=== PATIENT | male | born 1990 | race African-American/Black ===

== ENCOUNTER 2020-09-14 00:58 | Inpatient (IN) | payer OTHER, MEDICAID ==
[~2020-09-14] VITALS: Ht 177.8 cm; Wt 71.7 kg
--- NOTE | 2020-09-14 01:08 | NUR ---
patient came to er bed 3 c/o medial abdominal pain since 24X hr ago .Patient states that he has been having diarrhea and vomiting for the same time as well. patient states he ate at a restaurant and had chicken. Alert and Oriented x4. Denies shortness of breath. breathing evenly and unlabored on room air. connected to the monitor.
[2020-09-14] MEDS ORDERED: IV NS 0.9% 1,000 ML BAG IV ONE (01:30)
[2020-09-14] MEDS ORDERED: ONDANSETRON HCL/PF 4 MG/2 ML VIAL IVP ONE (01:30)
[2020-09-14] MEDS ORDERED: MORPHINE SULFATE INJ 2 MG/ML DISP.SYRIN IV ONE (01:30)
[2020-09-14] MEDS ORDERED: MORPHINE SULFATE INJ 4 MG/ML DISP.SYRIN ONE (01:39)
[2020-09-14] MEDS ORDERED: ONDANSETRON HCL/PF 4 MG/2 ML VIAL ONE (01:39)
[2020-09-14 01:49] LABS: BASOPHILS % (AUTO) 0.2 % (0.0-2.0); EOSINOPHILS % (AUTO) 0.3 % (0.0-6.0); HEMATOCRIT 39 % (39-51); HEMOGLOBIN 13.3 g/dL (13.5-17.5); LYMPHOCYTES # (AUTO) 1.1 /CMM (0.8-4.8); LYMPHOCYTES % (AUTO) 11.1 % (20.0-44.0); MEAN CORPUSCULAR HGB CONC 34 g/dl (31.0-36.0); MEAN CORPUSCULAR VOLUME 93 fL (80-96); MONOCYTES # (AUTO) 0.6 /CMM (0.1-1.30); NEUTROPHILS # (AUTO) 8.5 /CMM (1.8-8.9); NEUTROPHILS % (AUTO) 82.4 % (43.0-81.0); PLATELET COUNT (AUTO) 212 /CMM (150-450); RED BLOOD CELL COUNT(AUTO) 4.17 MIL/uL (4.5-6.0); WHITE BLOOD COUNT (AUTO) 10.3 K/uL (4.3-11.0)
[2020-09-14 01:52] LABS: BILIRUBIN,URINE SMALL (NEGATIVE); COLOR,URINE DARK YELLOW (YELLOW); LEUKOCYTE ESTERASE ,URINE NEGATIVE (NEGATIVE); NITRITE, URINE NEGATIVE (NEGATIVE); PROTEIN,URINE 30 mg/dl (NEGATIVE); UGLUCOSE NEGATIVE (NEGATIVE); UROBILINOGEN,URINE 0.2 EU/dL (0.2)
[2020-09-14 02:02] LABS: BACTERIA,URINE Few /HPF (None Seen); RBC,URINE TOO NUMEROUS TO COUN /HPF (0-2); SQUAMOUS EPITHELIAL CELL,UR Rare /HPF (None Seen); WBC,URINE 0-2 /HPF (0-3)
[2020-09-14 02:02] LABS: ALBUMIN 4.1 g/dL (3.4-5.0); BILIRUBIN,DIRECT 0.2 mg/dL (0.0-0.2); BILIRUBIN,TOTAL 0.7 mg/dL (0.2-1.0); CALCIUM, SERUM 8.8 mg/dL (8.5-10.1); CREATININE 1.3 mg/dL (0.6-1.3); POTASSIUM 3.7 mmol/L (3.5-5.1); TOTAL PROTEIN, SERUM 7.8 g/dL (6.4-8.2)
[2020-09-14] MEDS ORDERED: ONDA4TAB11 PO (02:15)
[2020-09-14] MEDS ORDERED: IBUP-1957 PO (02:15)
--- NOTE | 2020-09-14 02:32 | NUR ---
DR. TALBOT SPEAKING WITH RADIOLOGIST
--- NOTE | 2020-09-14 03:01 | NUR ---
COVID SWAB COLLECTED AND SENT TO LAB
--- NOTE | 2020-09-14 04:02 | NUR ---
REPORT GIVEN TO JOE DUARTE FOR IK[facility].
[2020-09-14 04:35] VITALS: BP 110/68
--- NOTE | 2020-09-14 04:35 | NUR ---
RN ADMITTING NOTE PATIENT BROUGHT FROM THE ER VIA WHEELCHAIR, PATIENT IS AMBULATORY. ADMITTED TO MS ROOM 104-1. A/O X 4, ABLE TO MAKE NEEDS KNOWN. DOES NOT COMPLAIN OF PAIN OR NAUSEA AT THIS TIME. TOLERATES ROOM AIR WITH 97% O2 SATURATION. BREATHING EVEN AND UNLABORED. NOT IN ANY APPARENT DISTRESS. RAC 18 G IV ACCESS PATENT AND INTACT. SKIN IS INTACT. WENT OVER PATIENT'S BELONGINGS LIST, ORIENTED PATIENT TO ROOM, UNIT, PRIMARY NURSE, CHARGE NURSE, AND AGATE SETTER. VITAL SIGNS UPON ARRIVAL: BP 110/68, HR 62, RR 18, TEMP 98.8. AWAITING ADMISSION ORDERS. WILL MONITOR PATIENT CLOSELY.
--- NOTE | 2020-09-14 04:45 | NUR ---
[id number] THACKER FOR ADMISSION ORDERS.
[2020-09-14] MEDS ORDERED: PIPERACILLIN /TAZOBACTAM 3.375 G VIAL IV ONE (05:26)
[2020-09-14] MEDS ORDERED: MORPHINE SULFATE INJ 2 MG/ML DISP.SYRIN IV PRN (05:30)
[2020-09-14] MEDS ORDERED: ACETAMINOPHEN 325 MG TABLET PO PRN (05:30)
[2020-09-14] MEDS ORDERED: MAGNESIUM HYDROXIDE 30 ML UDC PO PRN (05:30)
[2020-09-14] MEDS ORDERED: ZOLPIDEM TARTRATE 5 MG TABLET PO PRN (05:30)
[2020-09-14] MEDS ORDERED: HYDROCODONE/APAP 5/325MG TABLET PO PRN (05:30)
[2020-09-14] MEDS ORDERED: ONDANSETRON HCL/PF 4 MG/2 ML VIAL IVP PRN (05:30)
[2020-09-14] MEDS ORDERED: Z GUARD REMEDY 2 OZ OINT TP PRN (05:30)
[2020-09-14] MEDS ORDERED: MAG HYDROX/AL HYDROX/SIMETH 30 ML UDC PO PRN (05:30)
[2020-09-14] MEDS ORDERED: PIPERACILLIN /TAZOBACTAM 3.375 G in IV D5W 50 ML IV SCH (06:00)
[2020-09-14] MEDS ORDERED: ZOSYN IVPB 3.375 G in IV D5W 50ml IV ONE (06:00)
--- NOTE | 2020-09-14 06:54 | NUR ---
RN CLOSING NOTE PATIENT IN BED ASLEEP, EASILY AWAKENED. ZOSYN STILL ONGOING. PATIENT NOT IN ANY APPARENT DISTRESS. BREATHING EVEN AND UNLABORED. SAFETY MEASURES MAINTAINED. ALL ORDERS CARRIED OUT, ALL NEEDS MET AND ATTENDED. WILL ENDORSE TO DAY SHIFT NURSE FOR [facility].
--- NOTE | 2020-09-14 07:30 | NUR ---
RN NOTE PT A/Ox4 IN BED SEMIFOWLER'S ON RA SPO2 97%, NO S/S OF RESP DISTRESS OR SOB. PT DENIES PAIN AT THIS TIME. PT AMBULATORY WITH STEADY GAIT, SKIN INTACT. PT CURRENTLY NPO, AWAITING ORDERS. RAC #18 NOTED, FLUSHED, PATENT AND INTACT CURRENTLY INFUSING ZOSYN. ALL PT SAFETY PRECAUTIONS IN PLACE, WILL CONT TO MONITOR
[2020-09-14 08:00] VITALS: BP 104/57
[2020-09-14] MEDS: PIPERACILLIN /TAZOBACTAM 3.375 G in IV D5W 100 ML IV SCH ×2 (12:19→20:24)
[2020-09-14 16:00] VITALS: BP 109/58
--- NOTE | 2020-09-14 17:34 | NUR ---
SPOKE WITH DR. HERNANDEZ VIA PHONE UPDATED WITH PATIENT CONDITION.
--- NOTE | 2020-09-14 18:36 | NUR ---
RN CLOSING NOTE PT IS STABLE, NO CHANGES TO PT STATUS DURING SHIFT. PT STILL NPO, DENIED PAIN ENTIRE SHIFT, NO FEVER NOTED WELL. PT AWAITING DR HERNANDEZ CONSULT. ALL PT SAFETY PRECAUTIONS IN PLACE. WILL ENDORSE IKER TO ONCOMING RN
--- NOTE | 2020-09-14 19:30 | NUR ---
RN OPENING NOTES: RECEIVED PT A/OX4 IN BED RESTING COMFORTABLY. PATIENT IN NO S/SX OF ACUTE DISTRESS AT THIS TIME. NO SOB NOTED. PATIENT'S BREATHING IS EVEN AND UNLABORED. PATIENT IS ON ROOM AIR WITH 02 SAT OF 96% AT THE TIME OF RECEIVED; TOLERATING WELL. PATIENT ON MS STATUS. PATIENT ON NPO DIET AT THIS TIME. NOTED IV SITE ON R AC# 18; PATENT, INTACT AND FLUSHING WELL; NO S/S OF INFECTION OR INFILTRATION. PT IS AMBULATORY WITH BRP.SAFETY MEASURES HAVE BEEN PROVIDED AND IMPLEMENTED. PATIENT BED ALARM IS ON. HEAD OF BED ELEVATED. BED IS LOCKED, IN LOWEST POSITION AND SIDE RAILS UP. CALL LIGHT WITHIN REACH OF THE PATIENT. APPLICABLE ISOLATION PRECAUTIONS IN PLACE. WILL CONTINUE TO MONITOR AND REASSESS FOR ANY CHANGES AND WILL CARRY OUT ANY ONGOING AND ACTIVE MD ORDER.
[2020-09-14 20:00] VITALS: BP 119/54
--- NOTE | 2020-09-14 20:15 | NUR ---
RN NOTES FACILITATE CALL WITH DR. HERNANDEZ AND PT; ALL PT'S CONCERN WAS DISCUSSED WITH MD. MD ORDERED TO SWITCH DIET FROM NPO TO REGULAR DIET. NO PLANS OF SX PER MD. CHECK FOR AM LABS; ONCE CLEARED POSSIBLE DC EDINSON. EARLY CHILDHOOD EDUCATOR AIDE MADE AWARE. WILL CARRY OUT MD'S ORDER REQUESTED.
--- NOTE | 2020-09-14 23:00 | NUR ---
RN NOTES NO CHANGE IN PATIENT CONDITION AT THIS TIME PATIENT VITALS STABLE, NO SIGNS OF ACUTE RESPIRATORY DISTRESS. BIO MEDICAL TECHNICIAN MADE AWARE. WILL CONTINUE TO MONITOR AND REASSESS FOR ANY CHANGES THROUGHOUT THE SHIFT.
[2020-09-15 04:00] VITALS: BP 102/56
--- NOTE | 2020-09-15 04:00 | NUR ---
RN NOTES PATIENT REMAINS IN NO ACUTE RESPIRATORY DISTRESS AND NO PAIN AT THIS TIME, NO CHANGES TO CONDITION/STATUS. FILING MACHINE OPERATOR WELL AWARE. WILL CONTINUE TO MONITOR AND REASSESS FOR ANY CHANGES THROUGHOUT THE SHIFT
[2020-09-15] MEDS: PIPERACILLIN /TAZOBACTAM 3.375 G in IV D5W 100 ML IV SCH ×2 (04:24→12:09)
[2020-09-15 05:54] LABS: BASOPHILS % (AUTO) 0.1 % (0.0-2.0); EOSINOPHILS % (AUTO) 2.6 % (0.0-6.0); HEMATOCRIT 36 % (39-51); HEMOGLOBIN 12.5 g/dL (13.5-17.5); LYMPHOCYTES # (AUTO) 1.7 /CMM (0.8-4.8); LYMPHOCYTES % (AUTO) 25.6 % (20.0-44.0); MEAN CORPUSCULAR HGB CONC 34 g/dl (31.0-36.0); MEAN CORPUSCULAR VOLUME 94 fL (80-96); MONOCYTES # (AUTO) 0.8 /CMM (0.1-1.30); MONOCYTES % (AUTO) 11.4 % (2.0-12.0); NEUTROPHILS # (AUTO) 4.1 /CMM (1.8-8.9); NEUTROPHILS % (AUTO) 60.3 % (43.0-81.0); PLATELET COUNT (AUTO) 200 /CMM (150-450); RED BLOOD CELL COUNT(AUTO) 3.85 MIL/uL (4.5-6.0); WHITE BLOOD COUNT (AUTO) 6.8 K/uL (4.3-11.0)
[2020-09-15 06:30] LABS: ALBUMIN 3.2 g/dL (3.4-5.0); BILIRUBIN,TOTAL 0.7 mg/dL (0.2-1.0); CALCIUM, SERUM 8.5 mg/dL (8.5-10.1); CREATININE 1.4 mg/dL (0.6-1.3); POTASSIUM 3.6 mmol/L (3.5-5.1); TOTAL PROTEIN, SERUM 6.6 g/dL (6.4-8.2)
--- NOTE | 2020-09-15 06:52 | NUR ---
RN NOTES PATIENT REMAINS IN ROOM IN NO SIGNS OF RESPIRATORY DISTRESS, PATIENT STILL ON ROOM AIR;TOLERATING WELL SATURATING @ >95% SP02. SAFETY MEASURES IMPLEMENTED, BED IN LOWEST POSITION, LOCKED, SIDE RAILS UP, CALL LIGHT WITHIN REACH. ALL NEEDS AND ORDERS ADDRESSED DURING THE SHIFT. IV ACCESS MAINTAINED INTACT, SECURED AND FLUSHING WELL. ALL DUE MEDS GIVEN ORDERED & SCHEDULED ; PATIENT TOLERATED WELL. PATIENT KEPT CLEAN AND COMFORTABLE WITHIN THE SHIFT. PATIENT ENDORSED TO INCOMING SHIFT RN WITH STABLE VITAL SIGN AND FOR CONTINUITY OF CARE.
--- NOTE | 2020-09-15 07:30 | NUR ---
MS RN AM NOTE PT A/Ox4 IN BED SEMIFOWLER'S,ON RA SPO2 99%, NO S/S OF RESP DISTRESS OR SOB. RESPIRATION UNLABORED, PT DENIES PAIN AT THIS TIME. RT AC G18 FLUSHES WELL, SITE CLEAR. NOW ON REGULAR DIET, PT AMBULATORY WITH STEADY GAIT, SKIN INTACT. CURRENTLY INFUSING ZOSYN. POC DISCUSSED, VERBALIZED UNDERSTANDING. ALL PT SAFETY PRECAUTIONS IN PLACE, CALL LIGHT WITHIN REACH, WILL CONT TO MONITOR
[2020-09-15 08:00] VITALS: BP 118/60
--- NOTE | 2020-09-15 09:30 | NUR ---
RN NOTES DUE MEDS GIVEN
[2020-09-15 12:00] VITALS: BP 115/64
[2020-09-15 16:00] VITALS: BP 110/70
--- NOTE | 2020-09-15 16:35 | NUR ---
RN NOTES PATIENT DISCHARGED TO HOME TODAY PER MD IN STABLE CONDITION. PROVIDED DC INSTRUCTIONS, HEALTH TEACHINGS AND MED RECON LIST AND PRESCRIPTION. PATIENT TO FOLLOW UP WITH PCP IN 1 WEEK. RT AC IV ACCESS REMOVED, PRESSURE APPLIED, NO BLEEDING DRESSING IN PLACE. BELONGINGS CHECKED AND RETURNED, ALL PAPER WORKS SIGNED. ACCOMPANIED BY CHANDNI TO LOBBY VIA WHEELCHAIR, WILL DRIVE SELF HOME
== END 2020-09-15 16:42 | disposition home or self-care (01) | DRG 395 ==
LOC: ER 01:05 → MEDSG1 04:00
DX: K35.80 Unspecified acute appendicitis (principal); Z20.822 Contact with and (suspected) exposure to COVID-19
CPT/HCPCS: 36415; 80048-TC; 80053-TC; 80061-TC; 80076-TC; 81001; 83690-TC; 83735-TC; 84100-TC; 85025-TC; 87081-TC; C9803; G0378; J2270; J2405; J2543; J7030; J7050; J7060